=== PATIENT | female | born 1960 | race American Indian/Alaskan Native ===

== ENCOUNTER 2016-07-01 09:56 | Inpatient (IN) | payer MEDICARE, BC ==
[~2016-07-01 09:56] MED LIST: Lactated Ringers 1,000 ML IV SCH
[2016-07-01] MEDS ORDERED: ROPIVACAINE SCH ×5 (12:00)
[2016-07-01] MEDS ORDERED: [UNRECOGNIZED DRUG - OTHER] SCH ×5 (12:00)
[2016-07-01] MEDS ORDERED: ePHEDrine 50 MG/ML SDV IV ONE (12:00)
[2016-07-01] MEDS ORDERED: Ondansetron 4 MG/2 ML SDV IVPUSH ONE (12:00)
[2016-07-01] MEDS ORDERED: Rocuronium 50 MG/5 ML Vial IV ONE (12:00)
[2016-07-01] MEDS ORDERED: Dexamethasone 4 MG/ML 5 ML MDV IVPUSH ONE (12:00)
[2016-07-01] MEDS ORDERED: Heparin Sodium 5,000 Units/ML Vial IV ONE (12:00)
[2016-07-01] MEDS ORDERED: Midazolam 1 MG/ML 2 ML SDV IV ONE (12:00)
[2016-07-01] MEDS ORDERED: fentaNYL 100 MCG/2 ML SDV IV ONE (12:00)
[2016-07-01] MEDS ORDERED: EPINEPHRINE SCH ×5 (12:00)
[2016-07-01] MEDS ORDERED: Lactated Ringers 1,000 ML IV ONE (12:00)
[2016-07-01] MEDS ORDERED: Hetastarch in NS 500 ML IV ONE (12:00)
[2016-07-01] MEDS ORDERED: Lidocaine 2% 100 MG/5 ML Syringe IVPUSH ONE (12:00)
[2016-07-01] MEDS ORDERED: HYDROmorphone 2 MG/ML SDV IV ONE (12:00)
[2016-07-01] MEDS ORDERED: Propofol 200 MG/20 ML SDV IV ONE (12:00)
[2016-07-01] MEDS ORDERED: KETOROLAC SCH ×5 (12:00)
[2016-07-01] MEDS ORDERED: MORPHINE SCH ×5 (12:00)
[2016-07-01] MEDS ORDERED: Promethazine 25 MG/ML SDV IV ONE (12:00)
[2016-07-01] MEDS ORDERED: Docusate Sodium 100 MG Cap PO PRN (15:21)
[2016-07-01] MEDS ORDERED: Zolpidem 5 MG Tab PO PRN (15:39)
[2016-07-01] MEDS ORDERED: Morphine PF 30 MG/30 ML PCA Vial IV SCH (15:45)
[2016-07-01] MEDS: Lactated Ringers 1,000 ML IV SCH (19:41)
[2016-07-01] MEDS: Magnesium Chloride 64 MG Tab.ER PO SCH (20:37)
[2016-07-01] MEDS: Aspirin 325 MG Tab.EC PO SCH (20:37)
[2016-07-02] MEDS: Lactated Ringers 1,000 ML IV SCH ×3 (03:46→20:22)
--- NOTE | 2016-07-02 03:59 | OR ---
DATE OF OPERATION: 07/01/2016 SURGEON: Yonathan Mcneill MD PREOPERATIVE DIAGNOSIS: Severe osteoarthritis, left knee. POSTOPERATIVE DIAGNOSIS: Severe osteoarthritis, left knee. PROCEDURE PERFORMED: Left total knee arthroplasty. OPERATIVE NOTE: The patient was taken to the operating room after 1 g of vancomycin had been given IV. The patient was then carefully positioned onto the operative table and general anesthetic administered. Tourniquet was then placed on the left thigh near the inguinal area. Left lower extremity was then elevated and the tourniquet inflated to 250 mmHg after a sterile ChloraPrep and drape procedure had been performed from the inferior margin of the tourniquet to the tip of the toes. The knee then had incision over the anterior aspect of the left knee. It extended about a handbreadth above and a handbreadth below the patella. Skin and subcutaneous tissues were carefully dissected through and hemostasis was achieved utilizing electrocautery. The patient then had the vastus medialis identified and the medial capsule identified. The capsular incision was made one fingerbreadth medial to the patella extending proximally into the vastus medialis and quadriceps tendon junction and distally to the anterior tibial tubercle. The lateral retinacular release was performed. The patient had a lateral patellar spur we removed,so we could retract the patella from the operative field. Significant chondromalacia was noted with the osteophytes surrounding the femoral condyles. All osteophytes were removed with a large rongeur. We then made appropriate cuts in proper sequence utilizing Bee II posterior stabilized system cutting jigs. The medial and lateral menisci were removed. No loose bodies were encountered. After appropriate cuts were made, we placed a size 5 femoral, a size 5 tibial with a 9 mm insert and a 32 patellar button. The knee was taken through full range of motion. Excellent range of motion stability was noted. All components were removed. Thorough irrigation and debridement drying was again carried out. Polymethylmethacrylate was mixed and placed on the raw cancellous surfaces of the tibia as well as the tibial component. Component was inserted. Excess cement was removed. We then placed cement on the femoral side and the femoral component. The femoral component was inserted and a trial 9 mm insert was placed. The knee was taken into full extension. All extra cement was removed. The patient then had the retropatellar surface prepared with polymethylmethacrylate and onto the 32 mm patellar button. Patellar button was then clamped, compressed, and an excess cement was removed. After the cement had hardened, we took an AP x-ray that showed excellent alignment and correction of her valgus deformity. The patient then had the tourniquet deflated. Hemostasis achieved utilizing electrocautery. It should be noted that prior to deflating the tourniquet that 1000 units of heparin was given. The patient's knee was taken through full range of motion again and an excellent range of motion and good medial lateral stability being present, closure was begun. A small Hemovac drain was inserted and sewn into place. The patient then had the vastus medialis, quadriceps tendon junction, and the medial capsule closed with #1 Ethibond. The patient did have an Arthrex anchor placed near the anterior tibial tubercle to help support the patellar tendon attachment that was very small. The patient had the deep subcutaneous tissue closed with 0 Vicryl, 2-0 for the superficial subcutaneous tissue, and katie were utilized for closure of the skin. Skin cleansed and dried and sterile dressings applied. Tourniquet deflated. Sterile dressings applied. Prior to closure, with the pressure of the knee, the patient did receive trimodal which she had received in the past previous knee surgeries. Estimated blood loss approximately 700 mL maximum. Complications none. Procedure performed was left total condylar knee arthroplasty, posterior stabilized. /[id number] DIANA/DIEGO MTDTani
[2016-07-02] MEDS: Multivitamin Tab PO SCH (09:16)
[2016-07-02] MEDS: Aspirin 325 MG Tab.EC PO SCH ×2 (09:16→20:28)
[2016-07-02] MEDS: Acetaminophen/HYDROcodone 325-10 MG Tab PO PRN ×3 (09:46→20:26)
--- NOTE | 2016-07-02 11:08 | CR ---
INDICATION: Status post left total knee arthroplasty. LEFT KNEE, 2 VIEWS: AP and lateral views of the left knee reveal the patient to have a total knee in place. There is no evidence of fracture or dislocation. Alignment is good. No loose bodies noted. No associated fracture. MTDD
--- NOTE | 2016-07-02 17:18 | PN ---
DATE SEEN: 07/02/2016 PROBLEM: Status post left total knee arthroplasty. SUBJECTIVE: The patient states she is having minimal discomfort. She is not using her [employer] today. She denies any chest pain or shortness of breath. No nausea. OBJECTIVE: Today, her vital signs are stable. Hemoglobin 10.2. Comprehensive medical panel is fine. Neurovascular integrity is intact. Moderate amount out and drain. The patient doing well in physical therapy. ASSESSMENT: Status post left total condylar knee arthroplasty, posterior stabilized, doing very well. PLAN: The patient will progress with PT and be discharged when she is independent in daily living activities and can handle stairs. /[id number] DIANA/DIEGO
[2016-07-02] MEDS: Magnesium Chloride 64 MG Tab.ER PO SCH (20:28)
[2016-07-03] MEDS: Lactated Ringers 1,000 ML IV SCH (04:31)
[2016-07-03] MEDS: Aspirin 325 MG Tab.EC PO SCH ×2 (08:10→21:35)
[2016-07-03] MEDS: Multivitamin Tab PO SCH (08:10)
--- NOTE | 2016-07-03 13:53 | PN ---
DATE SEEN: 07/03/2016 PROBLEM: Status post left total knee arthroplasty. SUBJECTIVE: The patient states that she does not have any chest pain, shortness of breath, or difficulty breathing. She denies any nausea. She reports physical therapy is going well. OBJECTIVE: VITAL SIGNS: Today, vital signs are stable. Minimal output in the drain over the last 5 hours. EXTREMITIES: The patient has had physical therapy today and is doing well and can almost straight leg raise. She states she is able to walk up and down the car without any problems. HEART: Normal sinus rhythm. LUNGS: Clear to auscultation bilaterally. ASSESSMENT: As above, doing well. PLAN: 1. Discontinue IV today. 2. Repeat hemoglobin and hematocrit tomorrow morning as well as a complete medical panel. /[id number] DIANA/DIEGO
[2016-07-03] MEDS: Acetaminophen/HYDROcodone 325-10 MG Tab PO PRN (17:00)
[2016-07-03] MEDS: Magnesium Chloride 64 MG Tab.ER PO SCH (21:35)
[2016-07-04] MEDS: Acetaminophen/HYDROcodone 325-10 MG Tab PO PRN (02:23)
[2016-07-04] MEDS: Multivitamin Tab PO SCH (08:55)
[2016-07-04] MEDS: Aspirin 325 MG Tab.EC PO SCH (08:55)
[2016-07-04 13:12] VITALS: BP 98/66
--- NOTE | 2016-07-04 14:22 | PN ---
DATE SEEN: 07/04/2016 PROBLEM: Status post left total knee arthroplasty. SUBJECTIVE: The patient is asymptomatic today. She denies any chest pain or shortness of breath. The patient denies any pain in her knee. OBJECTIVE: Today, her vital signs are stable. Hemoglobin is 9.0, it has been relatively stable over the last 48 hours. Incision is healing well. She is independent in physical therapy. Potassium 3.5. The patient will be discharged today with return appointment on Friday at 1400 hours for recheck. Any questions or problems before, she will let me know or return. /[id number] DIANA/DIEGO
--- NOTE | 2016-07-05 01:48 | DISCH ---
DISCHARGE DATE: 07/04/2016 PREADMISSION PROBLEM: Severe osteoarthritis left knee. HOSPITAL COURSE: This patient was taken to surgery on the date of admission where a left posterior stabilized total condylar knee arthroplasty was performed. Patient tolerated the procedure well. At the time of discharge, her vital signs are stable. Neurovascular integrity is intact. Heart, normal sinus rhythm. Lungs are clear to auscultation. Incision healing well. ACTIVITY: Patient is up with walking aid and is independent, has been able to do stairs. The patient will continue outpatient physical therapy starting on Friday. CONSULTATIONS: None. DIET: Regular. MEDICATIONS: 1. Resume pre-admission medication usual dosage and frequency. 2. The patient will be given a prescription for hydrocodone 5/325, 1 to 2 every 3 to 4 hours p.o. p.r.n., #60. 3. Ecotrin 325 p.o. b.i.d. for 6 weeks. RETURN APPOINTMENT: The patient will return to see me Friday for recheck of the incision prior to her going to physical therapy and then we will see her back approximately 2 weeks later for removal of sutures. /[id number] DIANA/DIEGO
== END 2016-07-04 14:30 | disposition home or self-care (01) | DRG 470 ==
LOC: FB.MS 09:56
PROVIDERS: ADMIT Orthopaedic Surgery; ATTEND Orthopaedic Surgery
PROC: 0SRD0J9 Replacement of Left Knee Joint with Synthetic Substitute, Cemented, Open Approach (ICD-10-PCS; principal; 2016-07-01)
DX: M17.12 Unilateral primary osteoarthritis, left knee (principal); Z96.659 Presence of unspecified artificial knee joint; E03.9 Hypothyroidism, unspecified; E66.9 Obesity, unspecified; Z79.899 Other long term (current) drug therapy; Z88.1 Allergy status to other antibiotic agents; Z88.6 Allergy status to analgesic agent
CPT/HCPCS: 36415; 73560-LT; 80048; 80053; 84443; 85018; 85025; 85027; 86850; 86900; 86901; 86920; 86922; 93005; 94150; 97110-GP; 97116-GP; 97161-GP; 97166-GO; 97530-GO-KX; 97530-GP; 97535-GO; A9270-GY; C1713; C1776; J0171; J1100; J1170; J1644; J1885; J2250; J2270; J2274; J2405; J2550; J2704; J2795; J3010; J3370; J7050; J7120